=== PATIENT | female | born 1945 | race Caucasian/White ===

== ENCOUNTER 2024-12-18 06:33 | Inpatient (IN) | payer MEDICARE, OTHER ==
[~2024-12-18] VITALS: Ht 154.9 cm; Wt 86.2 kg
[2024-12-18] MEDS ORDERED: ANESTHESIA TRAY IN PYXIS 1 EA TRAY MC ONE (07:06)
[2024-12-18] MEDS ORDERED: VANCOMYCIN 1 GM VIAL ONE (07:07)
[2024-12-18] MEDS ORDERED: OXYMETAZOLINE HCL NASAL SPRAY 30 ML BOTTLE NS ONE (07:07)
[2024-12-18] MEDS ORDERED: dexaMETHasone SOD PHOSPHATE 2 ML ONE (07:07)
[2024-12-18] MEDS ORDERED: LIDOCAINE 2%-EPI 1:100,000 30 ML VIAL ONE (07:07)
[2024-12-18] MEDS ORDERED: FENTANYL PF 250MCG/5ML AMPUL ONE (07:14)
[2024-12-18] MEDS ORDERED: ROCURONIUM BROMIDE 50 MG/5 ML ONE (07:14)
[2024-12-18] MEDS ORDERED: LABETALOL 20 MG/4 ML VIAL ONE (08:48)
[2024-12-18] MEDS ORDERED: SEVOFLURANE 250 ML BOTTLE IH ONE (10:29)
[2024-12-18] MEDS ORDERED: ACETAMINOPHEN 325 MG TABLET PO PRN (12:30)
[2024-12-18] MEDS: IV NS 0.9% 1,000 ML IV PRN (13:16)
[2024-12-18] MEDS ORDERED: LEVO50TA PO (13:19)
[2024-12-18] MEDS ORDERED: FURO20TA4 PO (13:19)
[2024-12-18] MEDS ORDERED: DEXL60CA3 PO (13:19)
[2024-12-18] MEDS ORDERED: CETI10TA14 PO (13:19)
[2024-12-18] MEDS ORDERED: GABA300C PO (13:19)
[2024-12-18] MEDS: HYDROMORPHONE INJ 2 MG/ML DISP.SYRIN IV PRN (15:04)
[2024-12-18 16:00] VITALS: BP 102/62; TEMP 98.2; O2SAT 94
[2024-12-18] MEDS: ONDANSETRON HCL/PF 4 MG/2 ML VIAL IVP PRN (16:37)
[2024-12-18] MEDS: VANCOMYCIN 1 GM in IV D5W 250ml IV SCH (18:25)
[2024-12-18 20:00] VITALS: BP 135/73; TEMP 97.7; O2SAT 95
[2024-12-19 08:49] VITALS: BP 132/63; TEMP 97.9; O2SAT 96
[2024-12-19] MEDS ORDERED: FUROSEMIDE 20 MG TABLET PO PRN (10:00)
[2024-12-19] MEDS ORDERED: cetrizine 10 MG TABLET PO PRN (10:00)
[2024-12-19] MEDS ORDERED: PANTOPRAZOLE 40 MG TABLET.DR PO PRN (10:30)
[2024-12-19 16:00] VITALS: BP 119/64; TEMP 98.2; O2SAT 94
[2024-12-19] MEDS ORDERED: GABAPENTIN 300 MG CAPSULE PO PRN (22:00)
[2024-12-20] MEDS ORDERED: LEVOTHYROXINE SODIUM 50 MCG TABLET PO SCH (07:30)
== END 2024-12-19 16:00 | disposition home or self-care (01) | DRG 141 ==
LOC: DS 06:33 → MED 12:09
PROVIDERS: ADMIT Dentist Oral and Maxillofacial Surgery; ATTEND Dentist Oral and Maxillofacial Surgery
PROC: 0N5V0ZZ Destruction of Left Mandible, Open Approach (ICD-10-PCS; 2024-12-18)
PROC: 0N5T0ZZ Destruction of Right Mandible, Open Approach (ICD-10-PCS; 2024-12-18)
PROC: 0N5R0ZZ Destruction of Maxilla, Open Approach (ICD-10-PCS; 2024-12-18)
PROC: 0NUV07Z Supplement Left Mandible with Autologous Tissue Substitute, Open Approach (ICD-10-PCS; 2024-12-18)
PROC: 0NUR07Z Supplement Maxilla with Autologous Tissue Substitute, Open Approach (ICD-10-PCS; 2024-12-18)
PROC: 0NUT07Z Supplement Right Mandible with Autologous Tissue Substitute, Open Approach (ICD-10-PCS; 2024-12-18)
PROC: 0NSV04Z Reposition Left Mandible with Internal Fixation Device, Open Approach (ICD-10-PCS; 2024-12-18)
PROC: 0NST04Z Reposition Right Mandible with Internal Fixation Device, Open Approach (ICD-10-PCS; 2024-12-18)
PROC: 0NSR04Z Reposition Maxilla with Internal Fixation Device, Open Approach (ICD-10-PCS; principal; 2024-12-18 07:30)
DX: S02.40DA Maxillary fracture, left side, initial encounter for closed fracture (principal); M87.9 Osteonecrosis, unspecified; S02.40CA Maxillary fracture, right side, initial encounter for closed fracture; X58.XXXA Exposure to other specified factors, initial encounter; Y92.9 Unspecified place or not applicable; G62.9 Polyneuropathy, unspecified; E03.9 Hypothyroidism, unspecified; I10 Essential (primary) hypertension; M27.2 Inflammatory conditions of jaws; Z82.49 Family history of ischemic heart disease and other diseases of the circulatory system; Z88.6 Allergy status to analgesic agent; M27.40 Unspecified cyst of jaw; D16.4 Benign neoplasm of bones of skull and face; J32.0 Chronic maxillary sinusitis
CPT/HCPCS: A4223; A4338; C1713; G0378; J0461; J0690; J1100; J1171; J2405; J2704; J3010; J3370; J3490; J7030; J7060

== ENCOUNTER 2025-05-21 06:35 | Inpatient (IN) | payer MEDICARE, OTHER ==
[~2025-05-21] VITALS: Ht 157.5 cm; Wt 80.7 kg
[~2025-05-21 06:35] MED LIST: CETI10TA14 PO; DEXL60CA3 PO; FURO20TA4 PO; GABA300C PO; LEVO50TA PO
[2025-05-21] MEDS ORDERED: FENTANYL PF 250MCG/5ML AMPUL ONE (07:11)
[2025-05-21] MEDS ORDERED: ROCURONIUM BROMIDE 50 MG/5 ML ONE (07:12)
[2025-05-21] MEDS ORDERED: dexaMETHasone SOD PHOSPHATE 2 ML ONE (07:13)
[2025-05-21] MEDS ORDERED: VANCOMYCIN 1 GM VIAL ONE (07:13)
[2025-05-21] MEDS ORDERED: OXYMETAZOLINE HCL NASAL SPRAY 30 ML BOTTLE NS ONE (07:13)
[2025-05-21] MEDS ORDERED: LIDOCAINE 2%-EPI 1:100,000 30 ML VIAL ONE (07:13)
[2025-05-21] MEDS ORDERED: SEVOFLURANE 250 ML BOTTLE IH ONE (08:00)
[2025-05-21] MEDS ORDERED: LABETALOL HCL IV 100MG VIAL ONE (08:00)
[2025-05-21 09:45] VITALS: BP 111/61; TEMP 97.9; O2SAT 96
[2025-05-21] MEDS ORDERED: HYDROMORPHONE INJ 2 MG/ML DISP.SYRIN IV PRN (10:00)
[2025-05-21] MEDS ORDERED: ACETAMINOPHEN 325 MG TABLET PO PRN (10:00)
[2025-05-21] MEDS ORDERED: ONDANSETRON HCL/PF 4 MG/2 ML VIAL IVP PRN ×2 (10:00→12:30)
[2025-05-21] MEDS: IV NS 0.9% 1,000 ML IV PRN (10:55)
[2025-05-21] MEDS ORDERED: FUROSEMIDE 20 MG TABLET PO PRN (12:30)
[2025-05-21] MEDS ORDERED: IV NS 0.9% 1,000 ML IV PRN (12:30)
[2025-05-21] MEDS ORDERED: GABAPENTIN 300 MG CAPSULE PO PRN (12:30)
[2025-05-21] MEDS ORDERED: cetrizine 10 MG TABLET PO PRN (12:30)
[2025-05-21] MEDS: LEVOTHYROXINE SODIUM 50 MCG TABLET PO SCH (12:32)
[2025-05-21] MEDS: VANCOMYCIN 1 GM in IV D5W 250ml IV SCH (19:55)
[2025-05-21 20:00] VITALS: BP 117/67; TEMP 97.7; O2SAT 94
[2025-05-21] MEDS ORDERED: VANCOMYCIN 1 GM in IV D5W 250ml IV SCH (20:00)
[2025-05-22 08:00] VITALS: BP 122/62; TEMP 98.1; O2SAT 98
== END 2025-05-22 11:30 | disposition home or self-care (01) | DRG 908 ==
LOC: DS 06:35 → MED 10:30
PROVIDERS: ADMIT Dentist Oral and Maxillofacial Surgery; ATTEND Dentist Oral and Maxillofacial Surgery
PROC: 0N5R0ZZ Destruction of Maxilla, Open Approach (ICD-10-PCS; 2025-05-21)
PROC: 0NBT0ZZ Excision of Right Mandible, Open Approach (ICD-10-PCS; 2025-05-21)
PROC: 0NBV0ZZ Excision of Left Mandible, Open Approach (ICD-10-PCS; 2025-05-21)
PROC: 0NUR07Z Supplement Maxilla with Autologous Tissue Substitute, Open Approach (ICD-10-PCS; 2025-05-21)
PROC: 0NSR0ZZ Reposition Maxilla, Open Approach (ICD-10-PCS; 2025-05-21)
PROC: 0NPW04Z Removal of Internal Fixation Device from Facial Bone, Open Approach (ICD-10-PCS; principal; 2025-05-21 07:30)
DX: T86.831 Bone graft failure (principal); S02.40CK Maxillary fracture, right side, subsequent encounter for fracture with nonunion; T84.69XA Infection and inflammatory reaction due to internal fixation device of other site, initial encounter; S02.40DK Maxillary fracture, left side, subsequent encounter for fracture with nonunion; Y92.009 Unspecified place in unspecified non-institutional (private) residence as the place of occurrence of the external cause; E03.9 Hypothyroidism, unspecified; Z88.6 Allergy status to analgesic agent; G62.9 Polyneuropathy, unspecified; I10 Essential (primary) hypertension; Z79.890 Hormone replacement therapy; Y83.2 Surgical operation with anastomosis, bypass or graft as the cause of abnormal reaction of the patient, or of later complication, without mention of misadventure at the time of the procedure; Z79.899 Other long term (current) drug therapy; D17.9 Benign lipomatous neoplasm, unspecified; X58.XXXD Exposure to other specified factors, subsequent encounter; M89.38 Hypertrophy of bone, other site
CPT/HCPCS: 71045-TC; 88300-TC; 88305-TC; 88311-TC; A4217; A4223; A4338; G0378; J0461; J0690; J1100; J1171; J2704; J3010; J3373; J3490; J7030; J7050; J7060